=== PATIENT | female | born 1950 | race Caucasian/White ===

== ENCOUNTER 2018-10-28 19:34 | Emergency (ER) | payer MEDICARE, BC ==
[2018-10-28] MEDS ORDERED: Metoprolol Tartrate 50 MG Tab PO ONE (20:20)
[2018-10-28] MEDS ORDERED: Lurasidone 40 MG Tab PO ONE (20:20)
--- NOTE | 2018-10-28 21:20 | EDM.PDOCBH ---
<Kalpesh De La Torre - Last Filed: 10/29/18 06:35> ED HPI GENERAL MEDICAL PROBLEM - General Chief Complaint: Behavioral/Psych Stated Complaint: EVALUATION Time Seen by Provider: 10/28/18 20:35 Source of Information: Reports: Patient, EMS, Family History Limitations: Reports: Altered Mental Status - History of Present Illness INITIAL COMMENTS - FREE TEXT/NARRATIVE: 60-year-old female with a long history of bipolar disorder, becomes delusional when not taking her medications. Apparently she has not been taking her Saphris medication for the past several months. Tonight she was found wandering in a ditch after driving, thinking she was an deisy and speaking with Nimesh. EMS brought her into the hospital for stabilization. Vitals are fine. In discussing her situation with the family, this has been worsening and she has been hospitalized many times for stabilization when she gets into this condition. They are unable to convince her to take her medications. Onset: Unknown/Unsure Associated Symptoms: Reports: No Other Symptoms - Related Data Allergies Allergy/AdvReac Type Severity Reaction Status Date / Time azithromycin Allergy Cannot Verified 10/29/18 07:09 Remember clindamycin Allergy Cannot Verified 10/29/18 07:09 Remember iloperidone [From Fanapt] Allergy Cannot Verified 10/29/18 07:09 Remember nitrofurantoin Allergy Cannot Verified 10/29/18 07:09 [From Macrodantin] Remember Home Meds: Home Meds Asenapine Maleate [Saphris] 10 mg SL BEDTIME 10/29/18 [History] Past Medical History HEENT History: Reports: Other (See Below) Other HEENT History: unable to assess due to pts mental status Cardiovascular History: Reports: Other (See Below) Other Cardiovascular History: unable to assess due to pts mental status Respiratory History: Reports: Other (See Below) Other Respiratory History: unable to assess due to pts mental status Gastrointestinal History: Reports: Other (See Below) Other Gastrointestinal History: unable to assess due to pts mental status Genitourinary History: Reports: Other (See Below) Other Genitourinary History: unable to assess due to pts mental status [employer] WORK[employer] History: Reports: Other (See Below) Other [employer] WORK[employer] History: unable to assess due to pts mental status Musculoskeletal History: Reports: Other (See Below) Other Musculoskeletal History: unable to assess due to pts mental status Neurological History: Reports: Other (See Below) Other Neuro History: unable to assess due to pts mental status Psychiatric History: Reports: Other (See Below) Other Psychiatric History: unable to assess due to pts mental status Endocrine/Metabolic History: Reports: Other (See Below) Other Endocrine/Metabolic History: unable to assess due to pts mental status Hematologic History: Reports: Other (See Below) Other Hematologic History: unable to assess due to pts mental status Immunologic History: Reports: Other (See Below) Other Immunologic History: unable to assess due to pts mental status Oncologic (Cancer) History: Reports: Other (See Below) Other Oncologic History: unable to assess due to pts mental status Dermatologic History: Reports: Other (See Below) Other Dermatologic History: unable to assess due to pts mental status - Infectious Disease History Infectious Disease History: Reports: Other (See Below) Other Infectious Disease History: unable to assess due to pts mental status - Past Surgical History HEENT Surgical History: Reports: Other (See Below) Other HEENT Surgeries/Procedures: unable to assess due to pts mental status GI Surgical History: Reports: Other (See Below) Other GI Surgeries/Procedures: unable to assess due to pts mental status Female Surgical History: Reports: Other (See Below) Other Female Surgeries/Procedures: unable to assess due to pts mental status Neurological Surgical History: Reports: Other (See Below) Other Neurological Surgeries/Procedures: unable to assess due to pts mental status Musculoskeletal Surgical History: Reports: Other (See Below) Other Musculoskeletal Surgeries/Procedures:: unable to assess due to pts mental status Oncologic Surgical History: Reports: Other (See Below) Other Oncologic Surgeries/Procedures: unable to assess due to pts mental status Dermatological Surgical History: Reports: Other (See Below) Social & Family History - Tobacco Use Smoking Status *Q: Unknown Ever Smoked ED ROS GENERAL - Review of Systems Review Of Systems: Unable To Obtain (Patient has no other complaints, does not even think she is Netta Jo but an deisy) ED EXAM, BEHAVIORAL HEALTH - Physical Exam Exam: See Below Exam Limited By: No Limitations General Appearance: Alert, No Apparent Distress Eye Exam: Bilateral Eye: EOMI Throat/Mouth: Normal Inspection Head: Atraumatic Respiratory/Chest: No Respiratory Distress, Lungs Clear Cardiovascular: Regular Rate, Rhythm Neurological: Alert, Disoriented to Person, Disoriented to Place, Disoriented to Time Psychiatric: Alert, Uncooperative. No: Restless, Tearful Skin Exam: Warm, Dry COURSE, BEHAVIORAL HEALTH COMP - Course Vital Signs: Last Vital Signs Temp 37.1 C 10/28/18 20:21 Pulse 74 10/29/18 08:36 Resp 18 10/29/18 08:36 BP 128/64 10/29/18 08:36 Pulse Ox 98 10/29/18 08:36 Orders, Labs, Meds: Active Orders 24 hr Category Date Time Status Initiate/Renew Violent-Self Destructive Restraints >/= Care 10/28/18 21:30 Ordered 18yo Q4H Initiate/Renew Violent-Self Destructive Restraints >/= Care 10/29/18 01:30 Ordered 18yo Q4H Initiate/Renew Violent-Self Destructive Restraints >/= Care 10/29/18 05:30 Ordered 18yo Q4H Initiate/Renew Violent-Self Destructive Restraints >/= Care 10/29/18 09:30 Ordered 18yo Q4H Initiate/Renew Violent-Self Destructive Restraints >/= Care 10/29/18 13:30 Ordered 18yo Q4H Initiate/Renew Violent-Self Destructive Restraints >/= Care 10/29/18 17:30 Ordered 18yo Q4H Initiate/Renew Violent-Self Destructive Restraints >/= Care 10/29/18 21:30 Ordered 18yo Q4H Nrsg Assess: Viol-S.Dest Rest [RC] Q1H Care 10/29/18 02:17 Active Laboratory Tests 10/28/18 10/28/18 10/28/18 Range/Units 19:54 19:54 21:11 WBC 7.3 (4.5-11.0) K/uL RBC 4.88 (3.30-5.50) M/uL Hgb 14.2 (12.0-15.0) g/dL Hct 44.8 (36.0-48.0) % MCV 92 (80-98) fL MCH 29 (27-31) pg MCHC 32 (32-36) % Plt Count 299 (150-400) K/uL Neut % (Auto) 63 (36-66) % Lymph % (Auto) 28 (24-44) % [place] % (Auto) 8 H (2-6) % Eos % (Auto) 0 L (2-4) % Baso % (Auto) 1 (0-1) % Sodium 138 L (140-148) mmol/L Potassium 3.8 (3.6-5.2) mmol/L Chloride 102 (100-108) mmol/L Carbon Dioxide 25 (21-32) mmol/L Anion Gap 14.8 H (5.0-14.0) mmol/L BUN 12 (7-18) mg/dL Creatinine 0.7 (0.6-1.0) mg/dL Est Cr Clr Drug Dosing 55.25 mL/min Estimated GFR (MDRD) > 60 (>60) Glucose 105 (74-106) mg/dL Calcium 9.4 (8.5-10.1) mg/dL Total Bilirubin 0.4 (0.2-1.0) mg/dL AST 35 (15-37) U/L ALT 37 (12-78) U/L Alkaline Phosphatase 57 (46-116) U/L Total Protein 7.6 (6.4-8.2) g/dL Albumin 4.1 (3.4-5.0) g/dL Globulin 3.5 (2.3-3.5) g/dL Albumin/Globulin Ratio 1.2 (1.2-2.2) TSH, Ultra Sensitive 0.674 (0.358-3.740) uIU/mL Urine Color Yellow Urine Appearance Clear Urine pH 7.0 (4.5-8.0) Ur Specific [place] 1.010 (1.008-1.030) Urine Protein Negative (NEGATIVE) mg/dL Urine Glucose (UA) Normal (NEGATIVE) mg/dL Urine Ketones 50 H (NEGATIVE) mg/dL Urine Occult Blood Negative (NEGATIVE) Urine Nitrite Negative (NEGATIVE) Urine Bilirubin Negative (NEGATIVE) Urine Urobilinogen Normal (NORMAL) mg/dL Ur Leukocyte Esterase Negative (NEGATIVE) Urine RBC 0-5 (0-5) Urine WBC 0-5 (0-5) Ur Epithelial Cells Rare Amorphous Sediment Rare Urine Bacteria Few Urine Mucus Few Urine Opiates Screen (NEGATIVE) Ur Oxycodone Screen (NEGATIVE) Urine Methadone Screen (NEGATIVE) Ur Propoxyphene Screen (NEGATIVE) Ur Barbiturates Screen (NEGATIVE) Ur Tricyclics Screen (NEGATIVE) Ur Phencyclidine Scrn (NEGATIVE) Ur Amphetamine Screen (NEGATIVE) U Methamphetamines Scrn (NEGATIVE) Urine MDMA Screen (NEGATIVE) U Benzodiazepines Scrn (NEGATIVE) U Cocaine Metab Screen (NEGATIVE) U Marijuana (THC) Screen (NEGATIVE) 10/28/18 Range/Units 21:11 WBC (4.5-11.0) K/uL RBC (3.30-5.50) M/uL Hgb (12.0-15.0) g/dL Hct (36.0-48.0) % MCV (80-98) fL MCH (27-31) pg MCHC (32-36) % Plt Count (150-400) K/uL Neut % (Auto) (36-66) % Lymph % (Auto) (24-44) % [place] % (Auto) (2-6) % Eos % (Auto) (2-4) % Baso % (Auto) (0-1) % Sodium (140-148) mmol/L Potassium (3.6-5.2) mmol/L Chloride (100-108) mmol/L Carbon Dioxide (21-32) mmol/L Anion Gap (5.0-14.0) mmol/L BUN (7-18) mg/dL Creatinine (0.6-1.0) mg/dL Est Cr Clr Drug Dosing mL/min Estimated GFR (MDRD) (>60) Glucose (74-106) mg/dL Calcium (8.5-10.1) mg/dL Total Bilirubin (0.2-1.0) mg/dL AST (15-37) U/L ALT (12-78) U/L Alkaline Phosphatase (46-116) U/L Total Protein (6.4-8.2) g/dL Albumin (3.4-5.0) g/dL Globulin (2.3-3.5) g/dL Albumin/Globulin Ratio (1.2-2.2) TSH, Ultra Sensitive (0.358-3.740) uIU/mL Urine Color Urine Appearance Urine pH (4.5-8.0) Ur Specific [place] (1.008-1.030) Urine Protein (NEGATIVE) mg/dL Urine Glucose (UA) (NEGATIVE) mg/dL Urine Ketones (NEGATIVE) mg/dL Urine Occult Blood (NEGATIVE) Urine Nitrite (NEGATIVE) Urine Bilirubin (NEGATIVE) Urine Urobilinogen (NORMAL) mg/dL Ur Leukocyte Esterase (NEGATIVE) Urine RBC (0-5) Urine WBC (0-5) Ur Epithelial Cells Amorphous Sediment Urine Bacteria Urine Mucus Urine Opiates Screen Negative (NEGATIVE) Ur Oxycodone Screen Negative (NEGATIVE) Urine Methadone Screen Negative (NEGATIVE) Ur Propoxyphene Screen Negative (NEGATIVE) Ur Barbiturates Screen Negative (NEGATIVE) Ur Tricyclics Screen Negative (NEGATIVE) Ur Phencyclidine Scrn Negative (NEGATIVE) Ur Amphetamine Screen Negative (NEGATIVE) U Methamphetamines Scrn Negative (NEGATIVE) Urine MDMA Screen Negative (NEGATIVE) U Benzodiazepines Scrn Negative (NEGATIVE) U Cocaine Metab Screen Negative (NEGATIVE) U Marijuana (THC) Screen Negative (NEGATIVE) Medications Discontinued Medications Generic Name Dose Route Start Last Admin Trade Name Freq PRN Reason Stop Dose Admin Lurasidone HCl 40 mg 10/28/18 20:20 Latuda PO 10/28/18 20:21 ONETIME ONE Metoprolol Tartrate 50 mg 10/28/18 20:20 Lopressor PO 10/28/18 20:21 ONETIME ONE Re-Assessment/Re-Exam: Patient allowed us to draw labs, CBC and CMP along with a TSH were normal. UA was also obtained. She would not however allow us to give her any medications, as her blood pressure was elevated at slightly over 200 systolic but she would not take a dose of to or metoprolol. We will attempt to get her back into inpatient care, hopefully [place] were she was admitted last. [facility] is full. Other psychiatric facilities were contacted, unfortunately [facility] would accept her if there was improvement of her blood pressure, but the patient refuses to take any medicines or even allow us to take her blood pressure again. We will get discharge planning involved. Care will be turned over to Dr. Kelly at shift change. Departure - Departure Disposition: DC/Tfer to Psych Hosp/Unit 65 Clinical Impression: Bipolar 1 disorder, Medical non-compliance, Delusions - Discharge Information Referrals: PCP,None [Primary Care Provider] - Forms: ED Department Discharge <Finesse Kang G - Last Filed: 10/29/18 12:20> COURSE, BEHAVIORAL HEALTH COMP - Course Medical Clearance: 10/29/18 12:19 Accepted at [place], [place]-transport via van Departure - Departure Time of Disposition: 12:25 Condition: Fair - Discharge Information *PRESCRIPTION DRUG MONITORING PROGRAM REVIEWED*: No *COPY OF PRESCRIPTION DRUG MONITORING REPORT IN PATIENT DANITA: No
== END 2018-10-29 12:54 ==
LOC: JP.ED 19:34
DX: F31.9 Bipolar disorder, unspecified (principal); Z91.14 Patient's other noncompliance with medication regimen; Z88.8 Allergy status to other drugs, medicaments and biological substances; Z88.1 Allergy status to other antibiotic agents
CPT/HCPCS: 36415; 80053; 80305-QW; 81001; 84443; 85025; 99284; 99285